=== PATIENT | male | born 1950 | race Caucasian/White ===

== ENCOUNTER 2016-09-08 15:51 | Emergency (ER) | payer MEDICARE, OTHER ==
[2016-09-08] MEDS ORDERED: ONDANSETRON 4 MG VIAL ONE (16:25)
== END 2016-09-08 21:56 | disposition home or self-care (01) ==
LOC: ER 15:51
CPT/HCPCS: 36415 ×2; 70450 ×2; 71010 ×2; 80053 ×2; 81001 ×2; 82550 ×2; 82553 ×2; 83690 ×2; 83735 ×2; 84484 ×2; 85025 ×2; 85610 ×2; 85730 ×2; 93005 ×2; 96374 ×2; 99285; J2405